=== PATIENT | female | born 1945 | race Caucasian/White ===

== ENCOUNTER → 2022-01-23 | Outpatient (CLI) | payer MEDICARE, BC ==
[~2022-01-23] MED LIST: ARAVA 20MG TABL20 MG PO; CELEXA 20MG20 MG/TAB PO; FOLIC ACID 11 MG/TA1 PO; METHOTREXA2.5 MG/TAB PO; NORCO 325 MG-51 TAB PO; PRINIVIL10 MG PO; WELLBUTRIN 75MG75 MG PO
[2022-01-23 15:09] LABS: COLLECTION METHOD CLEAN CATCH
[2022-01-23 15:11] LABS: MUCOUS Present (NOT PRESENT); PH 5 (5-8); URINE APPEARANCE Hazy (CLEAR/HAZY); URINE BACTERIA Rare /hpf (NONE SEEN); URINE BLOOD Negative (NEGATIVE); URINE COLOR Yellow (YELLOW); URINE GLUCOSE Negative (NEGATIVE); URINE KETONE Negative (NEGATIVE); URINE NITRATE Negative (NEGATIVE); URINE PROTEIN(semi-quant) Negative (NEGATIVE); URINE UROBILINOGEN Negative (NEGATIVE)
== END ==
LOC: ZCOL.LAB 14:01
PROVIDERS: Nurse Practitioner Family
DX: N39.0 Urinary tract infection, site not specified (principal)

== ENCOUNTER → 2022-02-03 | Outpatient (CLI) | payer MEDICARE | LOC: MC.RAD 09:28 | DX: Z12.31 Encounter for screening mammogram for malignant neoplasm of breast (principal) ==

== ENCOUNTER → 2022-02-13 | Outpatient (CLI) | payer MEDICARE | LOC: MC.RAD 09:00 | DX: R92.8 Other abnormal and inconclusive findings on diagnostic imaging of breast (principal) ==

== ENCOUNTER → 2022-03-19 | Outpatient (CLI) | payer MEDICARE ==
[2022-03-19 17:57] LABS: COLLECTION METHOD CLEAN CATCH
[2022-03-19 18:16] LABS: PH 5.5 (5.0-8.5); URINE APPEARANCE Hazy (CLEAR/HAZY); URINE BLOOD Negative (NEGATIVE); URINE COLOR Yellow (YELLOW); URINE GLUCOSE Negative (NEGATIVE); URINE KETONE Negative (NEGATIVE); URINE NITRATE Negative (NEGATIVE); URINE PROTEIN(semi-quant) Negative (NEGATIVE); URINE UROBILINOGEN 0.2 E.U/dL (0.2-1.0)
[2022-03-19 18:17] LABS: MUCOUS Present (NOT PRESENT); URINE BACTERIA Rare /hpf (NONE SEEN)
== END ==
LOC: ZCOL.LAB 17:29
DX: N39.0 Urinary tract infection, site not specified (principal)

== ENCOUNTER → 2022-05-08 | Outpatient (CLI) | payer MEDICARE | LOC: COL.RAD 10:37 | DX: R82.998 Other abnormal findings in urine (principal) ==

== ENCOUNTER → 2022-08-12 | Outpatient (CLI) | payer MEDICARE, BC | LOC: COL.RAD 14:58 | DX: K44.9 Diaphragmatic hernia without obstruction or gangrene (principal); J18.9 Pneumonia, unspecified organism; R91.8 Other nonspecific abnormal finding of lung field | CPT/HCPCS: Q9967 ==

== ENCOUNTER → 2022-10-01 | Outpatient (CLI) | payer MEDICARE, BC | LOC: COL.RAD 08:34 | DX: K44.9 Diaphragmatic hernia without obstruction or gangrene (principal); K21.9 Gastro-esophageal reflux disease without esophagitis; K22.9 Disease of esophagus, unspecified ==